=== PATIENT | male | born 1960 | race Two or more races ===

== ENCOUNTER 2017-11-04 10:44 | Inpatient (IN) | payer BC ==
[~2017-11-04] VITALS: Ht 172.7 cm; Wt 95.3 kg
--- NOTE | 2017-11-04 10:54 | NUR ---
PT TO ED DT LEFT FALNK PAIN RADITING TO THE BACK SINCE YESRDAY 11/27. PATIENT IS [email or web address]
[2017-11-04] MEDS ORDERED: KETOROLAC TROMETHAMINE 15 MG/ML VIAL ONE (11:14)
[2017-11-04] MEDS ORDERED: ONDANSETRON HCL/PF 4 MG/2 ML VIAL ONE (11:14)
[2017-11-04] MEDS ORDERED: HYDROMORPHONE 1 MG/1 ML DISP.SYRIN ONE ×3 (11:15→14:40)
--- NOTE | 2017-11-04 11:28 | NUR ---
YELITZA CHETNA AT
[2017-11-04] MEDS ORDERED: HYDROMORPHONE INJ 2 MG/ML DISP.SYRIN IV ONE (11:30)
[2017-11-04] MEDS ORDERED: ONDANSETRON HCL/PF 4 MG/2 ML VIAL IVP ONE (11:30)
[2017-11-04] MEDS ORDERED: KETOROLAC TROMETHAMINE INJ 30 MG/ML VIAL IV ONE (11:30)
[2017-11-04 11:34] LABS: BASOPHILS # (AUTO) 0.2 /CMM (0.0-0.2); BASOPHILS % (AUTO) 2.2 % (0.0-2.0); EOSINOPHILS % (AUTO) 0.3 % (0.0-6.0); HEMATOCRIT 43 % (39-51); HEMOGLOBIN 14.5 g/dL (13.5-17.5); LYMPHOCYTES # (AUTO) 1.1 /CMM (0.8-4.8); LYMPHOCYTES % (AUTO) 10.9 % (20.0-44.0); MEAN CORPUSCULAR HEMOGLOBIN 30 PG (26.0-33.0); MEAN CORPUSCULAR HGB CONC 34 g/dl (31.0-36.0); MEAN CORPUSCULAR VOLUME 88 fL (80-96); MONOCYTES # (AUTO) 0.4 /CMM (0.1-1.30); MONOCYTES % (AUTO) 4.2 % (2.0-12.0); NEUTROPHILS # (AUTO) 8.3 /CMM (1.8-8.9); NEUTROPHILS % (AUTO) 82.4 % (43.0-81.0); PLATELET COUNT (AUTO) 230 /CMM (150-450); RDW COEFFICIENT OF VARIATION 13.1 (11.5-15.0); RED BLOOD CELL COUNT(AUTO) 4.87 MIL/uL (4.5-6.0)
[2017-11-04 11:39] LABS: CARBON DIOXIDE 26 mmol/L (21-32); CHLORIDE 102 mmol/L (98-107); CREATININE 1.1 mg/dL (0.6-1.3); GLUCOSE 120 mg/dL (74-106); POTASSIUM 4.8 mmol/L (3.5-5.1); SODIUM SERUM 131 mmol/L (136-145); UREA NITROGEN, BLOOD 18 mg/dL (7-18)
[2017-11-04 11:44] LABS: ALANINE AMINOTRANSFERASE 38 U/L (12-78); ALBUMIN 3.9 g/dL (3.4-5.0); ALKALINE PHOSPHATASE 81 U/L (46-116); ASPARTATE AMINOTRANSFERASE 26 U/L (15-37); BILIRUBIN,TOTAL 0.3 mg/dL (0.2-1.0); LIPASE 373 U/L (73-393); TOTAL PROTEIN, SERUM 7.7 g/dL (6.4-8.2)
[2017-11-04 11:46] LABS: TROPONIN I < 0.017 ng/mL (0.00-0.056)
[2017-11-04 12:16] LABS: BAND % (MANUAL) 1 % (0.0-5.0); BASOPHILS % (MANUAL) 0 % (0.0-2.0); EOSINOPHILS % (MANUAL) 0 % (0-4); LYMPHOCYTES % (MANUAL) 15 % (16-48); MONOCYTES % (MANUAL) 5 % (0-11.0); NEUTROPHILS % (MANUAL) 79 (42-76)
[2017-11-04] MEDS ORDERED: HYDROMORPHONE 1 MG/1 ML DISP.SYRIN IV ONE (12:30)
[2017-11-04 12:38] LABS: BILIRUBIN,URINE Negative (NEGATIVE); BLOOD, URINE Trace-intact Ery/uL (NEGATIVE); COLOR,URINE Light yellow (YELLOW); KETONES,URINE Negative (NEGATIVE); LEUKOCYTE ESTERASE ,URINE Negative (NEGATIVE); NITRITE, URINE Negative (NEGATIVE); PH,URINE 5.5 (5.0-8.0); PROTEIN,URINE Negative (NEGATIVE); UGLUCOSE Negative (NEGATIVE); UROBILINOGEN,URINE 0.2 EU/dL (0.2)
[2017-11-04 12:40] LABS: APPEARANCE,URINE Cloudy (CLEAR)
[2017-11-04 12:56] LABS: BACTERIA,URINE None seen /HPF (None Seen); RBC,URINE 0-2 /HPF (0-2); SQUAMOUS EPITHELIAL CELL,UR Few /HPF (None Seen); URINE AMORPHOUS URATE Many /HPF (None Seen); WBC,URINE NONE SEEN /HPF (0-3)
[2017-11-04] MEDS ORDERED: HYDROMORPHONE INJ 0.5 MG/0.5 ML SYRINGE IV ONE (14:30)
[2017-11-04] MEDS ORDERED: ASPIRIN 325 MG TABLET PO ONE (15:30)
[2017-11-04] MEDS ORDERED: ASPIRIN 325 MG TABLET ONE (15:34)
[2017-11-04] MEDS ORDERED: NITROGLYCERIN PACKET 1 GM PACKET TD ONE (16:30)
[2017-11-04] MEDS ORDERED: NITROGLYCERIN PACKET 1 GM PACKET ONE (16:31)
--- NOTE | 2017-11-04 16:36 | NUR ---
PT TRANSPORTED TO [facility],. S
[2017-11-04 17:00] VITALS: BP 140/94
[2017-11-04] MEDS ORDERED: ASPI-1169 PO (17:01)
[2017-11-04] MEDS ORDERED: ATEN25TA PO (17:01)
[2017-11-04] MEDS ORDERED: SIMV10TA6 PO (17:01)
[2017-11-04] MEDS ORDERED: ASPIRIN 81 MG TAB.CHEW PO SCH (17:30)
--- NOTE | 2017-11-04 17:30 | NUR ---
PERCUSSION INSTRUCTORBIOMEDICAL SERVICE ENGINEER NOTES Patient received from ER for chest pain along with family members. Alert and oriented x4, verbally responsive. Complaints of left flank pain. Denies any chest pain. Ambulatory. Skin body assessment done. IV on left hand #20g: patent and intact. MD aware of patient's arrival. Belongings checked by [employer]. Recreational Director assessed patient at bedside. On oxygen therapy with no SOB/labored breathing noted. Not in any type of distress. Tele: Sinus rhythm; HR 87. Safety measures in place. Will continue to monitor and assess patient.
[2017-11-04] MEDS: LISINOPRIL (10MG) 10 MG TABLET PO SCH (18:39)
[2017-11-04] MEDS: PANTOPRAZOLE 40 MG TABLET.DR PO SCH (18:39)
[2017-11-04] MEDS: CARVEDILOL 12.5 MG TABLET PO SCH (18:39)
[2017-11-04] MEDS ORDERED: IV NS 0.9% 250 ML IV ONE (18:55)
[2017-11-04] MEDS ORDERED: IOHEXOL-300 100 ML VIAL IV ONE (18:55)
[2017-11-04] MEDS ORDERED: CT SWABBABLE VALVE TRANS SET 1 EA INFUS.SET MC ONE (18:55)
[2017-11-04] MEDS ORDERED: IV NS 0.9% 1,000 ML IV PRN (19:18)
[2017-11-04] MEDS ORDERED: ONDANSETRON HCL/PF 4 MG/2 ML VIAL IVP PRN (19:30)
--- NOTE | 2017-11-04 19:33 | NUR ---
ASSEMBLER DC [employer] CLOSING NOTES Report given. Patient in bed, awake, back from CT scan. No changes in LOC. Afebrile. Remained on oxygen therapy with no SOB/labored breathing noted. Not in any type of distress. MD made aware of brother's report (around [id number]) regarding possible kidney stones from previous nephrology appointment previously, prior to coming to [facility] ER today. Kept clean and dry. All needs anticipated and met. Bed in locked and lowest position with call light within reach. Endorsed to oncoming shift nurse Tele: Sinus rhythm; HR 80s
[2017-11-04] MEDS: MORPHINE SULFATE INJ 4 MG/ML DISP.SYRIN IV PRN ×2 (19:48→22:55)
[2017-11-04 20:00] VITALS: BP_SYST 142; BP_SYST 162; BP_DIAS 107; BP_DIAS 88
[2017-11-04] MEDS ORDERED: MAG HYDROX/AL HYDROX/SIMETH 30 ML UDC PO PRN (20:00)
--- NOTE | 2017-11-04 20:00 | NUR ---
RN NOTE DR CRISTIANO ESTEVEZ IS BY BEDSIDE, DOCTOR CRISTIANO ESTEVEZ DISCUSSES PATIENT'S CONDITION WITH THE FAMILY
[2017-11-04] MEDS ORDERED: HYDROMORPHONE INJ 0.5 MG/0.5 ML SYRINGE IV PRN (20:30)
--- NOTE | 2017-11-04 20:42 | NUR ---
RN NOTE PATIENT'S FAMILY REQUESTED TO DISCUSS CT SCAN RESULT, NOTIFIED KIM PATE NP, HERLINDA ALVAREZ NP STATED "LJ NOTIFY PRIMARY MD IN THE MORNING TO FOLLOW UP". FAMILY IS AWARE
[2017-11-04 21:32] LABS: MAGNESIUM 1.8 mg/dL (1.8-2.4); PHOSPHORUS 3.1 mg/dL (2.5-4.9)
[2017-11-05] VITALS (7 sets, daily range): BP systolic 126–162; BP diastolic 68–95
[2017-11-05 00:13] LABS: THYROID STIMULATING HORMONE 1.836 uIU/mL (0.358-3.74)
[2017-11-05] MEDS ORDERED: ACETAMINOPHEN 325 MG TABLET PO PRN (03:30)
[2017-11-05 06:53] LABS: ALANINE AMINOTRANSFERASE 30 U/L (12-78); ALBUMIN 3.3 g/dL (3.4-5.0); ALKALINE PHOSPHATASE 63 U/L (46-116); ASPARTATE AMINOTRANSFERASE 18 U/L (15-37); BILIRUBIN,TOTAL 0.3 mg/dL (0.2-1.0); CALCIUM, SERUM 8.6 mg/dL (8.5-10.1); CARBON DIOXIDE 26 mmol/L (21-32); CHLORIDE 104 mmol/L (98-107); GLUCOSE 110 mg/dL (74-106); PHOSPHORUS 2.5 mg/dL (2.5-4.9); POTASSIUM 4.1 mmol/L (3.5-5.1); SODIUM SERUM 139 mmol/L (136-145); TOTAL PROTEIN, SERUM 6.9 g/dL (6.4-8.2); UREA NITROGEN, BLOOD 12 mg/dL (7-18)
[2017-11-05 07:03] LABS: TROPONIN I < 0.017 ng/mL (0.00-0.056)
[2017-11-05 07:45] LABS: BASOPHILS % (AUTO) 0.1 % (0.0-2.0); EOSINOPHILS % (AUTO) 0.9 % (0.0-6.0); HEMATOCRIT 43 % (39-51); HEMOGLOBIN 14.4 g/dL (13.5-17.5); LYMPHOCYTES # (AUTO) 1.6 /CMM (0.8-4.8); LYMPHOCYTES % (AUTO) 14.3 % (20.0-44.0); MEAN CORPUSCULAR HEMOGLOBIN 30 PG (26.0-33.0); MEAN CORPUSCULAR HGB CONC 33 g/dl (31.0-36.0); MEAN CORPUSCULAR VOLUME 89 fL (80-96); MONOCYTES # (AUTO) 0.8 /CMM (0.1-1.30); MONOCYTES % (AUTO) 7.4 % (2.0-12.0); NEUTROPHILS # (AUTO) 8.9 /CMM (1.8-8.9); NEUTROPHILS % (AUTO) 77.3 % (43.0-81.0); PLATELET COUNT (AUTO) 188 /CMM (150-450); RDW COEFFICIENT OF VARIATION 13.4 (11.5-15.0); RED BLOOD CELL COUNT(AUTO) 4.86 MIL/uL (4.5-6.0); WHITE BLOOD COUNT (AUTO) 11.4 K/uL (4.3-11.0)
--- NOTE | 2017-11-05 07:59 | NUR ---
Patient says he has a headache and he usually does not have a headache. He wants to know why he has abdomen pain and thinks it may be because of his blood pressure.
--- NOTE | 2017-11-05 08:18 | NUR ---
Discussed patient nothing by mouth order for possible further CT testing. Patient remembers name and hospital. Checked phone for date. Says he came into hospital for left side back pain. Says is is in the left upper and lower abdomen quadrant now. It was after eating a large meal, "I ate too much" he claims. Asked if he remembered talking last night with Doctor Quinten. He said, "Not much because I was sleeping most of the day." His phone rang and abstract writer provided privacy and phone.
[2017-11-05] MEDS: PANTOPRAZOLE 40 MG TABLET.DR PO SCH (08:59)
[2017-11-05] MEDS ORDERED: PANTOPRAZOLE 40 MG VIAL IV SCH (09:00)
[2017-11-05] MEDS ORDERED: ASPIRIN 81 MG TAB.CHEW PO SCH (09:00)
[2017-11-05] MEDS: ATENOLOL 25 MG TABLET PO SCH ×2 (09:02→09:07)
[2017-11-05] MEDS: CARVEDILOL 12.5 MG TABLET PO SCH ×2 (09:03→09:07)
[2017-11-05] MEDS: LISINOPRIL (10MG) 10 MG TABLET PO SCH ×2 (09:03→09:07)
[2017-11-05] MEDS ORDERED: BISACODYL SUPP (10 MG) 10 MG/SUPP.RECT SUPP.RECT RC PRN (11:30)
[2017-11-05] MEDS ORDERED: TAMSULOSIN 0.4 MG CAP.SR.24H PO ONE (14:00)
--- NOTE | 2017-11-05 14:22 | NUR ---
Daughter of patient returned to patient bedside. Patient ate lunch. Refused rectal suppository for bowel movement. Says he will take [facility] medicine for prostate.
--- NOTE | 2017-11-05 15:44 | NUR ---
Patient is leaving hospital with all belongings accompanied by daughter. Provided discharge instructions, medication prescriptions, current medication list, and follow up per recommendation of his provider, Doctor MD Sole. Intravenous catheter intact upon removal. Site covered with gauze dressing. Patient ambulatory with a steady gait.
[2017-11-05] MEDS ORDERED: SIMVASTATIN 10 MG TABLET PO SCH (18:00)
[2017-11-05] MEDS ORDERED: LISINOPRIL (10MG) 10 MG TABLET PO SCH (21:00)
[2017-11-05] MEDS ORDERED: CARVEDILOL 12.5 MG TABLET PO SCH (21:00)
[2017-11-05] MEDS ORDERED: BISACODYL (5 MG) 5 MG TABLET.DR PO PRN (22:00)
== END 2017-11-05 15:30 | disposition home or self-care (01) | DRG 694 ==
LOC: ER 10:46 → TELE1 16:25 → MEDSG1 11-05 12:08 → TELE1 11-05 12:08
DX: N20.0 Calculus of kidney (principal); I25.10 Atherosclerotic heart disease of native coronary artery without angina pectoris; I10 Essential (primary) hypertension; Z79.82 Long term (current) use of aspirin; Z79.899 Other long term (current) drug therapy; Z72.0 Tobacco use; K59.00 Constipation, unspecified; J43.9 Emphysema, unspecified; Z87.442 Personal history of urinary calculi
CPT/HCPCS: 36415; 71045-TC; 71260-TC; 76770-TC; 80048-TC; 80053-TC; 80061-TC; 80076-TC; 81000-TC; 83690-TC; 83735-TC; 84100-TC; 84439-TC; 84443-TC; 84484-TC; 85025-TC; 87081-TC; 93307-TC; A4606; C9113; J1170; J1885; J2270; J2405; J7030; J7050; Q9967; Z7610